=== PATIENT | female | born 1965 | race Caucasian/White ===

== ENCOUNTER 2018-11-09 13:53 | Emergency (ER) | payer OTHER ==
[~2018-11-09] VITALS: Ht 165.1 cm; Wt 82.0 kg
[2018-11-09 17:10] VITALS: BP 130/74
== END 2018-11-09 17:17 | disposition home or self-care (01) ==
LOC: ER 13:53
DX: M71.21 Synovial cyst of popliteal space [Baker], right knee (principal); M25.561 Pain in right knee; Z90.710 Acquired absence of both cervix and uterus
CPT/HCPCS: 73562; 99283; L1830